=== PATIENT | male | born 1985 | race Hispanic/Latino ===

== ENCOUNTER 2019-12-29 00:01 | Emergency (ER) | payer SELFPAY ==
--- NOTE | 2019-12-29 00:33 | ER ---
Nurse's Notes [facility] Name: Sedrick Ballard Jr Age: 34 yrs Sex: Male : 1985 Arrival Date: 12/29/2019 Time: 00:05 Bed 17 Private MD: Diagnosis: Displaced fracture of fifth metatarsal bone, right foot Presentation: 12/28 00:19 Chief complaint: Patient states: Playing basketball, went off of pavement, twisted lp1 right foot; Pain and swelling, bruising to lateral side of right foot; Denies any other injuries. Coronavirus screen: Proceed with normal triage. Ebola Screen: No symptoms or risks identified at this time. Initial Sepsis Screen: Does the patient meet any 2 criteria? No. Patient's initial sepsis screen is negative. Does the patient have a suspected source of infection? No. Patient's initial sepsis screen is negative. Risk Assessment: Do you want to hurt yourself or someone else? Patient reports no desire to harm self or others. Onset of symptoms was December 28, 2019 at 18:30. 00:19 Method Of Arrival: Ambulatory lp1 00:19 Acuity: FRIEDA 4 lp1 Triage Assessment: 12/27 12:00 General: Appears in no apparent distress. uncomfortable, Behavior is calm, cooperative. ls4 Historical: - Allergies: 12/28 00:21 No Known Allergies; lp1 - Home Meds: 00:21 None [Active]; lp1 - PMHx: 00:21 None; lp1 - PSHx: 00:21 None; lp1 - Immunization history:: Adult Immunizations up to date, Last tetanus immunization: up to date. - Social history:: Smoking status: Patient denies any tobacco usage or history of. Screenin:12 Abuse screen: Denies threats or abuse. Denies injuries from another. Nutritional ls4 screening: No deficits noted. Tuberculosis screening: No symptoms or risk factors identified. Fall Risk None identified. Assessment: 00:27 General: Appears in no apparent distress. uncomfortable. Pain: Complains of pain in ls4 lateral side of right foot and dorsum of right foot Pain currently is 5 out of 10 on a pain scale. Neuro: No deficits noted. Cardiovascular: No deficits noted. Respiratory: No deficits noted. GI: No deficits noted. : No deficits noted. EENT: No deficits noted. No signs and/or symptoms were reported regarding the EENT system. Derm: Skin is pink, warm \T\ dry. Wound noted right fifth toe Wound is abrasion. Musculoskeletal: Circulation, motion, and sensation intact. Capillary refill < 3 seconds, Range of motion: limited in right foot Swelling present in right foot Injury Description: Bruise sustained to right foot. Vital Signs: 00:19 BP 146 / 102; Pulse 100; Resp 18; Pulse Ox 99% on R/A; Weight 92.99 kg (R); Height 5 lp1 ft. 10 in. (177.80 cm); Pain 3/10; 01:05 BP 138 / 88; Pulse 79; Resp 19; Temp 98.0; Pulse Ox 100% on R/A; Pain 3/10; ls4 00:19 Body Mass Index 29.41 (92.99 kg, 177.80 cm) lp1 ED Course: 00:05 Patient arrived in ED. fj1 00:12 Kaelyn Moses, RN is Primary Nurse. ls4 00:12 Patient has correct armband on for positive identification. Bed in low position. Call ls4 light in reach. Side rails up X 1. 00:18 Iona Bradford FNP-C is [facility]. kb 00:18 Lion Ayers MD is Attending Physician. kb 00:21 Triage completed. lp1 00:21 Arm band placed on. lp1 00:30 Ice pack to injury. ls4 00:30 Patient did not have IV access during this emergency room visit. ls4 00:37 Foot Right 3 View XRAY In Process Unspecified. EDMS 01:06 No provider procedures requiring assistance completed. Crutch training done. Ortho shoe ls4 applied to right foot. Wound care: to abrasion, was cleaned with with ns, neosporin and bandaid Patient tolerated well. Administered Medications: No medications were administered Outcome: 00:33 Discharge ordered by . kb 01:07 Discharged to home ambulatory, with crutches. ls4 01:07 Condition: good 01:07 Discharge instructions given to patient, Instructed on discharge instructions, follow up and referral plans. medication usage, safety practices, Demonstrated understanding of instructions, follow-up care, medications, crutch walking, Prescriptions given X 1. 01:08 Patient left the ED. ls4 Signatures: Dispatcher [employer] EDMS Sanchez, Iona, ASSOCIATE MATERIAL HANDLER-C ASSOCIATE MATERIAL HANDLER-Ckb Tess Slater, RN RN lp1 Kaelyn Moses RN RN ls4 Edson Monroy fj1
--- NOTE | 2019-12-29 00:34 | EDPHYS ---
Physician Documentation [facility] Name: Sedrick Ballard Jr Age: 34 yrs Sex: Male : 1985 Arrival Date: 12/29/2019 Time: 00:05 Bed 17 Private MD: ED Physician Lion Ayers HPI: 12/28 00:30 This 34 yrs old Male presents to ER via Ambulatory with complaints of Foot kb Injury. 00:30 The patient presents with an injury, pain, swelling, tenderness. The complaints affect kb the right foot. Context: The problem was sustained outdoors, resulted from playing basketball and foot rolled off concrete, Mechanism of Injury: Inversion the patient can partially bear weight, uses a walker. Onset: The symptoms/episode began/occurred today, at 18:00. Modifying factors: The symptoms are alleviated by nothing, the symptoms are aggravated by weight bearing. Associated signs and symptoms: Pertinent positives: swelling, Pertinent negatives: calf tenderness, fever, nausea, numbness, rash, tingling, vomiting, warmth, weakness. Severity of symptoms: At their worst the symptoms were moderate, in the emergency department the symptoms are unchanged. The patient has not experienced similar symptoms in the past. The patient has not recently seen a physician. Historical: - Allergies: 00:21 No Known Allergies; lp1 - Home Meds: 00:21 None [Active]; lp1 - PMHx: 00:21 None; lp1 - PSHx: 00:21 None; lp1 - Immunization history:: Adult Immunizations up to date, Last tetanus immunization: up to date. - Social history:: Smoking status: Patient denies any tobacco usage or history of. ROS: 00:29 Constitutional: Negative for fever, chills, and weight loss, Cardiovascular: Negative kb for chest pain, palpitations, and edema, Respiratory: Negative for shortness of breath, cough, wheezing, and pleuritic chest pain, Abdomen/GI: Negative for abdominal pain, nausea, vomiting, diarrhea, and constipation, Back: Negative for injury and pain, Skin: Negative for injury, rash, and discoloration, Neuro: Negative for headache, weakness, numbness, tingling, and seizure. 00:29 MS/extremity: Positive for injury or acute deformity, ecchymosis, pain, swelling, tenderness, of the lateral side of right foot. Exam: 00:29 Constitutional: This is a well developed, well nourished patient who is awake, alert, kb and in no acute distress. Head/Face: Normocephalic, atraumatic. Chest/axilla: Normal chest wall appearance and motion. Nontender with no deformity. No lesions are appreciated. Cardiovascular: Regular rate and rhythm with a normal S1 and S2. No gallops, murmurs, or rubs. Normal PMI, no JVD. No pulse deficits. Respiratory: Lungs have equal breath sounds bilaterally, clear to auscultation and percussion. No rales, rhonchi or wheezes noted. No increased work of breathing, no retractions or nasal flaring. Abdomen/GI: Soft, non-tender, with normal bowel sounds. No distension or tympany. No guarding or rebound. No evidence of tenderness throughout. Skin: Warm, dry with normal turgor. Normal color with no rashes, no lesions, and no evidence of cellulitis. Neuro: Awake and alert, GCS 15, oriented to person, place, time, and situation. Cranial nerves II-XII grossly intact. Motor strength 5/5 in all extremities. Sensory grossly intact. Cerebellar exam normal. Normal gait. 00:29 Musculoskeletal/extremity: Extremities: grossly normal except: noted in the lateral side of right foot: ecchymosis, pain, swelling, tenderness, ROM: intact in all extremities, Circulation is intact in all extremities. Sensation intact. Weight bearing: can bear weight with assistance only, uses walker. Vital Signs: 00:19 BP 146 / 102; Pulse 100; Resp 18; Pulse Ox 99% on R/A; Weight 92.99 kg (R); Height 5 lp1 ft. 10 in. (177.80 cm); Pain 3/10; 01:05 BP 138 / 88; Pulse 79; Resp 19; Temp 98.0; Pulse Ox 100% on R/A; Pain 3/10; ls4 00:19 Body Mass Index 29.41 (92.99 kg, 177.80 cm) lp1 MDM: 00:18 Patient medically screened. kb 00:29 Data reviewed: vital signs, nurses notes. Data interpreted: Pulse oximetry: on room air kb is 99 %. Interpretation: normal. 00:32 Counseling: I had a detailed discussion with the patient and/or guardian regarding: the kb historical points, exam findings, and any diagnostic results supporting the discharge/admit diagnosis, radiology results, the need for outpatient follow up, a orthopedic surgeon, to return to the emergency department if symptoms worsen or persist or if there are any questions or concerns that arise at home. 12/28 00:19 Order name: Foot Right 3 View XRAY kb 12/28 00:32 Order name: Crutches; Complete Time: 01:05 kb 12/28 00:32 Order name: Post-op shoe; Complete Time: 01: kb Administered Medications: No medications were administered Disposition: 06:45 Co-signature as Attending Physician, Lion Ayers MD I agree with the assessment and tw4 plan of care. Disposition: 12/29/19 00:33 Discharged to Home. Impression: Displaced fracture of fifth metatarsal bone, right foot. - Condition is Stable. - Discharge Instructions: Metatarsal Fracture. - Prescriptions for Diclofenac Sodium 75 mg Oral Tablet, Delayed Release (E.C.) - take 1 tablet by ORAL route 2 times per day As needed; 30 tablet. - Medication Reconciliation Form, Thank You Letter, Antibiotic Education, Prescription Opioid Use, Work release form form. - Follow up: Emergency Department; When: As needed; Reason: Worsening of condition. Follow up: Private Physician; When: 2 - 3 days; Reason: Recheck today's complaints, Continuance of care, Re-evaluation by your physician. Signatures: Dispatcher [employer] EDMS Iona Bradford, COUNTER WAITRESS/WAITER-C COUNTER WAITRESS/WAITER-Tess España RN RN lp1 Lion Ayers MD MD tw4 Kaelyn Moses RN RN ls4 Corrections: (The following items were deleted from the chart) 01:08 00:33 12/29/2019 00:33 Discharged to Home. Impression: Displaced fracture of fifth ls4 metatarsal bone, right foot. Condition is Stable. Forms are Medication Reconciliation Form, Thank You Letter, Antibiotic Education, Prescription Opioid Use. Follow up: Emergency Department; When: As needed; Reason: Worsening of condition. Follow up: Private Physician; When: 2 - 3 days; Reason: Recheck today's complaints, Continuance of care, Re-evaluation by your physician. kb
[2019-12-29 01:16] VITALS: BP 138/88; TEMP 98; O2SAT 100
--- NOTE | 2019-12-29 08:36 | RAD REPORT ---
EXAM DESCRIPTION: RAD - Foot Right 3 View - 12/29/2019 12:36 am CLINICAL HISTORY: Right foot pain status post injury FINDINGS: Avulsion fracture involves the base of the fifth metatarsal. No dislocation
== END 2019-12-29 01:08 | disposition home or self-care (01) ==
LOC: ER 00:01
DX: S92.351A Displaced fracture of fifth metatarsal bone, right foot, initial encounter for closed fracture (principal); Y93.67 Activity, basketball; Y92.89 Other specified places as the place of occurrence of the external cause
CPT/HCPCS: 99284